=== PATIENT | male | born 1990 | race Caucasian/White ===

== ENCOUNTER → 2019-08-13 | Outpatient (CLI) | payer OTHER ==
--- NOTE | 2019-08-13 16:43 | CONS ---
CONSULTATION DATE OF SERVICE: 08/13/2019 28-year-old gentleman has [facility] evaluated [facility] for difficulty to concentrate during the day, feeling tired sometimes and sometimes falling asleep at school. HISTORY OF PRESENT ILLNESS/SLEEP-WAKE EVALUATION: Patient's usual sleep schedule from 10:00 pm to 6 or 7 a.m. basically 7 days a week. No problems with falling asleep, although he has TV set in bedroom. He usually sleeps on the side position by himself. No any clear information about his breathing during the sleep or about snoring. He wakes up from sleep up to 4 times without nocturia. No history of hypnagogic hallucinations, sleep paralysis or cataplexy. Sometimes he feels that his mouth is dry. During the night he may need to during water. In the morning, he wakes up tired, has difficulties to pay attention, has problems with memory, concentration, has episodes of irritability and anxiety. Marston Sleepiness Scale is 6. PAST MEDICAL HISTORY: Past medical history negative. PAST SURGICAL HISTORY: Status post bilateral additional lens implant to the eyes for correction of the vision. Vision improved after the surgery in 2013. MEDICATIONS: None. SOCIAL HISTORY: Negative for smoking or using alcohol. FAMILY HISTORY: Positive for snoring and sleep apnea by his father and his brother. REVIEW OF SYSTEMS: Difficulties to concentrate during the day, episodes of tiredness and sleepiness. PHYSICAL EXAMINATION: During physical exam: gentleman without distress. BP 126/73, HR 66, RR 14, height 5 feet and 11 inches, weight 235.6, body mass index 32.7. Neck is 17 inches in circumference. Temperature 97.9. Oxygen saturation at room air 97%, wide neck 17 inches in circumference. HEENT: Slight restriction of nasal breathing. Oropharynx short distance between soft palate and posterior pharyngeal wall. Vertically position of soft palate practically normal. NECK: Supple, no JVD. Thyroid is not palpable. LUNGS: Clear to percussion and to auscultation. Good air exchange. No wheezing or rhonchi. HEART: S1, S2 regular. No murmurs, gallops, or rubs. ABDOMEN: Soft and nontender. Bowel sounds are present. No organomegaly appreciated. EXTREMITIES: No clubbing or cyanosis. PIN CLEANER: Awake, alert, and oriented X3. Cranial nerves 2 to 7 intact. There is no fasciculation or atrophy. noted. No focal deficits observed. IMPRESSION: 1. Multiple awakenings from sleep up to 4 times with episodes of dryness in the mouth, wide neck, feeling tiredness and sleepiness during the day. Short distance between soft palate and posterior pharyngeal wall, family history of obstructive sleep apnea, possible obstructive sleep apnea-hypopnea syndrome. 2. Feeling of tiredness and sleepiness during the day. Difficulties to concentrate. Differential diagnosis should include hypersomnia. 3. Mild obesity, body mass index 32.7. 4. Status post bilateral eye surgery for additional lens implant for correction of vision, vision improved after surgery. PLAN: 1. Polysomnography for evaluation of patient's breathing during sleep. 2. CPAP/BiPAP titration if sleep study confirms obstructive sleep apnea-hypopnea syndrome. 3. Preferable position during sleep on the side. 4. No driving if patient feels any sleepiness. 5. I will see patient for follow up visit to explain results of testing and following plan. 6. Multiple sleep latency test if sleep study will be negative for obstructive sleep apnea-hypopnea syndrome. Thank you very much for referring this patient for consultation. Sincerely, Tommy Cardenas MD, PhD, FAASM Diplomat of [employer] [employer] [facility] [place] MMODL / IJN: [id number] /
== END ==
LOC: SLEEP 10:27
PROVIDERS: ATTEND Internal Medicine
DX: R53.83 Other fatigue (principal); E66.9 Obesity, unspecified; Z68.32 Body mass index [BMI] 32.0-32.9, adult; Z98.890 Other specified postprocedural states
CPT/HCPCS: 99201

== ENCOUNTER → 2019-11-05 | Outpatient (CLI) | payer OTHER ==
--- NOTE | 2019-11-05 19:02 | PN ---
PROGRESS NOTE DATE OF SERVICE: 11/05/2019 This patient is a 28-year-old gentleman who has been followed in [facility]. He is here to discuss results of sleep studies and following plan. Recently the patient had a polysomnogram and multiple sleep latency test and I discussed results of sleep studies with the patient in detail. Diagnostic polysomnogram did not show significant abnormalities of respiration following today's criteria. Apnea-hypopnea index was 2.9 with normal oxygenation during the sleep. Lowest oxygen level was 91.5. The patient slept during this night for 6 hours 26 minutes. On the following day, the patient had 5 naps and showed a short mean sleep latency of 7.5 minutes with 3 sleep-onset REM periods. The patient continues to feel sleepiness during the day, sometimes falling asleep during classes. MEDICATIONS: None. PHYSICAL EXAMINATION: GENERAL: A pleasant patient in no distress. VITAL SIGNS: BP 142/81, HR 80, RR 16, temperature 98.7, oxygen saturation at room air 98%. Weight 232.6. HEENT: PERRLA, EOMI. Evaluation of oropharynx showed tongue protrudes midline. Extremely low position of soft palate. NECK: Supple. No JVD. Thyroid is not palpable. LUNGS: Clear to percussion and to auscultation. Good air exchange. No wheezing or rhonchi. HEART: S1, S2 regular. No murmurs, gallops or rubs. ABDOMEN: Soft. No tenderness. EXTREMITIES: No clubbing or cyanosis. ALLIED HEALTH TEACHER: Awake, alert, and oriented X3. Cranial nerves 2 to 7 intact. There is no fasciculation or atrophy. noted. No focal deficits observed. IMPRESSION: 1. No significant respiratory abnormalities have been documented during the sleep study. 2. Multiple sleep latency test confirmed sleepiness; mean sleep latency 7.5 minutes. 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 The patient does not have history of Cataplexy. 3. Mild obesity. 4. Status post bilateral eye surgery for lens implants. PLAN: 1. Sleep hygiene with regular time in bed for at least 7-1/2 to 8 hours. 2. Precautions related to driving. No driving if feeling any sleepiness. Patient promised to follow recommendations. 3. I will start the patient on Adderall 5 mg one tablet in the morning and one tablet around 1 p.m. 4. Preferable position during sleep on the side. Thank you very much for allowing me to participate in the management of your patient. Sincerely, oTmmy Cardenas MD, PhD, FAASM Diplomat of [employer] [facility] [place] MMODL / JULIET: [id number] /
== END | disposition home or self-care (01) ==
LOC: SLEEP 15:25
PROVIDERS: ATTEND Internal Medicine
DX: G47.8 Other sleep disorders (principal); E66.9 Obesity, unspecified; Z96.1 Presence of intraocular lens